=== PATIENT | female | born 1945 | race Hispanic/Latino ===

== ENCOUNTER → 2023-06-18 | Outpatient (CLI) | payer OTHER ==
[2023-06-18] MEDS: REGADENOSON 0.4 MG/5 ML PF SYG IVP SCH (11:54)
== END | disposition home or self-care (01) ==
LOC: RAH 08:48
PROVIDERS: ATTEND Internal Medicine
DX: R07.9 Chest pain, unspecified (principal); I10 Essential (primary) hypertension
CPT/HCPCS: 78452; 96374; 93017; J2785; A9500 ×2

== ENCOUNTER → 2023-09-18 | Outpatient (CLI) | payer OTHER | END | disposition home or self-care (01) | LOC: SHCH 09:50 | PROVIDERS: ATTEND Internal Medicine | DX: I08.8 Other rheumatic multiple valve diseases (principal); R07.9 Chest pain, unspecified; E11.9 Type 2 diabetes mellitus without complications | CPT/HCPCS: 93306 ==

== ENCOUNTER → 2024-06-29 | Outpatient (CLI) | payer OTHER ==
--- NOTE | 2024-06-30 08:13 | HMCSR ---
APPROVED REPORT EXAM: Two-dimensional and M-mode echocardiogram with Doppler and color Doppler. INDICATION ICD: I25.10 Atherosclerotic heart disease of [place] coronary artery without angina pectoris 2D Dimensions RVDd3.6 cmLVEF(%)59.3 (>50%)LVEF(%, simp.)61 % IVSd0.9 (0.7-1.1cm)FS(%)31 %LA ESV INDEX (BP)40.42 mL/m2 LVDd4.5 (3.8-5.6cm)LA (2D)4.7 (1.6-4.0cm) PWd1.2 (0.7-1.1cm)Ao Root(2D)2.9 (2.0-3.7cm) IVSs1.2 cmLVOT diam1.9 (1.8-2.4cm) LVDs3.1 (2.5-4.0cm) PWs1.1 cm M-Mode Dimensions EPSS0.8 cm LA (MM)5.0 (1.6-4.0cm) Ao Root(MM)3.1 (2.0-3.7cm) Aortic Valve AoV Vmax1.5 m/Marieal Peak GR8.5 mmHgLVOT Vmax1.0 m/s AoV VTI0.4 mAo Mean GR4.6 mmHgLVOT VTI0.27 m SOHEILA (VMAX)2.1 cm2AVA (VTI) 2.1 cm2 Mitral Valve MV E Vmax62.5 cm/sDECEL Whjj523 ms MV A Vmax90.0 cm/sP 1/2 T88 ms E/A ratio0.7MVA (PHT)2.5 cm2 TDI E/E' Bvcdbj77.5E/E' Lateral0.2 Medial E' Peak V5.00 cm/sLateral E' Peak V405.00 cm/s Pulmonary Valve PV Vmax0.8 m/s Tricuspid Valve TR Vmax2.5 m/sRAP (EST) 3 qaRlCWJB34.9 mmHg TR Peak GR24.9 mmHg Left Ventricle The left ventricle is normal size. There is normal left ventricular wall thickness. LVEF is 60-65%. G rade II diastolic dysfunction. Right Ventricle The right ventricle is normal size. The right ventricular systolic function is normal. Atria The left atrium is moderately dilated. The right atrium size is normal. Aortic Valve The aortic valve is normal in structure. No aortic regurgitation is present. There is no aortic valvu lar stenosis. Mitral Valve The mitral valve is normal in structure. There is trace of mitral valve regurgitation noted. There is no mitral valve stenosis. Tricuspid Valve The tricuspid valve is normal in structure. There is mild tricuspid valve regurgitation noted. Pulmonic Valve The pulmonary valve is normal in structure. There is mild pulmonic valvular regurgitation. Great Vessels The aortic root is normal in size. The IVC is normal in size and collapses >50% with inspiration. Pericardium There is no pericardial effusion. Other Information Quality : AdequateRhythm : NSR Conclusion LVEF is 60-65%. Grade II diastolic dysfunction. The left atrium is moderately dilated. Mild tricuspid valve regurgitation noted. Mild pulmonic valvular regurgitation.
== END | disposition home or self-care (01) ==
LOC: RAH 14:24
PROVIDERS: ATTEND Internal Medicine
DX: I08.8 Other rheumatic multiple valve diseases (principal); I25.10 Atherosclerotic heart disease of native coronary artery without angina pectoris
CPT/HCPCS: 93306